=== PATIENT | male | born 1980 | race Caucasian/White ===

== ENCOUNTER 2018-03-07 16:19 | Emergency (ER) | payer BC, OTHER ==
--- NOTE | 2018-03-07 16:30 | EDM.PDOC ---
ED HPI GENERAL MEDICAL PROBLEM - General Chief Complaint: Upper Extremity Injury/Pain Stated Complaint: POSSIBLE SPIDER BITE Time Seen by Provider: 03/07/18 16:25 - History of Present Illness INITIAL COMMENTS - FREE TEXT/NARRATIVE: HISTORY AND PHYSICAL: History of present illness: Patient is a 37-year-old white male presents with concern mild swelling and tenderness over the dorsal aspect of his right hand he does not recall any specific injury with no fever chills nausea vomiting or other complaints Review of systems: As per history of present illness and below otherwise all systems reviewed and negative. Past medical history: As per history of present illness and as reviewed below otherwise noncontributory. Surgical history: As per history of present illness and as reviewed below otherwise noncontributory. Social history: No reported history of drug or alcohol abuse. Family history: As per history of present illness and as reviewed below otherwise noncontributory. Physical exam: HEENT: Atraumatic, normocephalic, pupils reactive, negative for conjunctival pallor or scleral icterus, mucous membranes moist, throat clear, neck supple, nontender, trachea midline. Lungs: Clear to auscultation, breath sounds equal bilaterally, chest nontender. Heart: S1S2, regular, negative for clicks, rubs, or JVD. Abdomen: Soft, nondistended, nontender. Negative for masses or hepatosplenomegaly. Negative for costovertebral tenderness. Pelvis: Stable nontender. Genitourinary: Deferred. Rectal: Deferred. Extremities: Right hand has some small swelling over the dorsal aspect hand with out erythema crepitation or point tenderness CMS neurovascular exams unremarkable Neuro: Awake, alert, oriented. Cranial nerves II through XII unremarkable. Cerebellum unremarkable. Motor and sensory unremarkable throughout. Exam nonfocal. Diagnostics: X-ray right hand CBC Therapeutics: None Impression: #1 right hand pain/swelling etiology be determined Definitive disposition and diagnosis as appropriate pending reevaluation and review of above. - Related Data Allergies Allergy/AdvReac Type Severity Reaction Status Date / Time No Known Allergies Allergy Verified 03/07/18 16:28 Home Meds: Home Meds Cephalexin [Keflex] 500 mg PO TID 03/07/18 [History] Review of Systems - Review of Systems Review Of Systems: ROS reveals no pertinent complaints other than HPI. ED EXAM, GENERAL - Physical Exam Exam: See Below (See dictation) Course - Vital Signs Last Recorded V/S: Last Vital Signs Temp 36.6 C 03/07/18 16:29 Pulse 91 03/07/18 16:29 Resp 18 03/07/18 16:29 BP 127/86 03/07/18 16:29 Pulse Ox 97 03/07/18 16:29 - Orders/Labs/Meds Orders: Active Orders 24 hr Category Date Time Status Hand 2V Rt [CR] Stat Exams 03/07/18 16:28 Ordered Labs: Laboratory Tests 03/07/18 Range/Units 16:54 WBC 8.47 (4.0-11.0) K/uL RBC 5.19 (4.50-5.90) M/uL Hgb 15.4 (13.0-17.0) g/dL Hct 45.4 (38.0-50.0) % MCV 87.5 (80.0-98.0) fL MCH 29.7 (27.0-32.0) pg MCHC 33.9 (31.0-37.0) g/dL RDW Std Deviation 44.0 (28.0-62.0) fl RDW Coeff of Jadiel 14 (11.0-15.0) % Plt Count 233 (150-400) K/uL MPV 9.40 (7.40-12.00) fL Neut % (Auto) 65.6 (48.0-80.0) % Lymph % (Auto) 20.8 (16.0-40.0) % [place] % (Auto) 12.6 (0.0-15.0) % Eos % (Auto) 0.5 (0.0-7.0) % Baso % (Auto) 0.5 (0.0-1.5) % Neut # (Auto) 5.6 (1.4-5.7) K/uL Lymph # (Auto) 1.8 (0.6-2.4) K/uL [place] # (Auto) 1.1 H (0.0-0.8) K/uL Eos # (Auto) 0.0 (0.0-0.7) K/uL Baso # (Auto) 0.0 (0.0-0.1) K/uL Nucleated RBC % 0.0 /100WBC Nucleated RBCs # 0 K/uL Departure - Departure Time of Disposition: 17:04 Disposition: Home, Self-Care 01 Condition: Good Clinical Impression: Hand pain - Discharge Information Forms: ED Department Discharge Additional Instructions: The following information is given to patients seen in the emergency department who are being discharged to home. This information is to outline your options for follow-up care. We provide all patients seen in our emergency department with a follow-up referral. The need for follow-up, as well as the timing and circumstances, are variable depending upon the specifics of your emergency department visit. If you don't have a primary care physician on staff, we will provide you with a referral. We always advise you to contact your personal physician following an emergency department visit to inform them of the circumstance of the visit and for follow-up with them and/or the need for any referrals to a consulting specialist. The emergency department will also refer you to a specialist when appropriate. This referral assures that you have the opportunity for followup care with a specialist. All of these measure are taken in an effort to provide you with optimal care, which includes your followup. Under all circumstances we always encourage you to contact your private physician who remains a resource for coordinating your care. When calling for followup care, please make the office aware that this follow-up is from your recent emergency room visit. If for any reason you are refused follow-up, please contact the [facility] emergency department at and asked to speak to the emergency department charge nurse. [facility] Professional [address], [address] [place] [address] Grupo as prescribed follow-up [facility] clinic above call to schedule appointment return as needed as discussed - My Orders Last 24 Hours: My Active Orders 03/07/18 16:28 Hand 2V Rt [CR] Stat - Assessment/Plan Last 24 Hours: My Active Orders 03/07/18 16:28 Hand 2V Rt [CR] Stat
--- NOTE | 2018-03-08 10:10 | CR ---
EXAM DATE: 03/07/18 PATIENT'S AGE: 37 Patient: JUANITA BRYANT Facility: [place], [place] Site Site : 1980 Study: XRay Extremity Right HAND [id number]/24/2019 5:16:09 PM Ordering Physician: ADITYA Final Report: INDICATION: Pain and swelling. No known injury. COMPARISON: None. FINDINGS/IMPRESSION: Right hand, 2 views. Nonspecific mild diffuse soft tissue swelling. No soft tissue gas collections or radiopaque foreign bodies. No fracture, dislocation, bony erosion, or other acute osseous finding. Mild spurring of the 3rd metacarpal head. Dictated by Sam Shaw MD @ 03/07/2018 5:37:05 PM Dictated by: Sam Shaw MD @ 03/07/2018 17:38:02 (Electronic Signature) Report Signed by Proxy. CHRIS
== END 2018-03-07 17:24 | disposition home or self-care (01) ==
LOC: MW.ED 16:19
DX: M79.89 Other specified soft tissue disorders (principal); M79.641 Pain in right hand
CPT/HCPCS: 36415; 73120-26-RT; 73120-RT; 85025; 99282; 99283